=== PATIENT | male | born 2000 | race Caucasian/White ===

== ENCOUNTER 2021-05-18 22:22 | Emergency (ER) | payer BC, SELFPAY ==
--- NOTE | 2021-05-18 22:41 | ED.NAVMDI ---
HPI - Nausea/Vomiting/Diarrhea General Chief complaint: Nausea/Vomiting/Diarrhea Stated complaint: throwing up since Source: patient and RN notes reviewed Mode of arrival: ambulatory Limitations: no limitations History of Present Illness MD elicited complaint: nausea and vomiting Onset (ago): day(s) (1) Description of vomiting: food contents and bilious Associated nausea: Yes Location of pain: epigastric ( muscles feel sore from vomiting) Pain consistency: intermittent Severity: mild Quality: cramping and dull Exacerbating factors: none Relieving factors: none Associated symptoms: denies other symptoms Related Data Allergies Allergy/AdvReac Type Severity Reaction Status Date / Time No Known Allergies Allergy Verified 05/18/21 22:40 Review of Systems Review of Systems: All systems reviewed & are unremarkable except as noted in HPI and below Constitutional: Constitutional: Denies chills and Denies fever(s) Genitourinary: Genitourinary: Denies dysuria PMFSH Past Medical History Medical History (Updated 05/19/21 @ 04:32 by Mati Edwards MD) No active medical problems Surgical History Surgical History (Updated 05/18/21 @ 22:49 by Mati Edwards MD) No pertinent past surgical history Social History Social History (Updated 05/18/21 @ 22:49 by Mati Edwards MD) Smoking status: Never smoker Second hand tobacco smoke exposure: No Alcohol intake: current Substance use: never Exam Const: General: healthy appearing, no acute distress and alert Nutritional Appearance: well nourished and thin Orientation/consciousness: patient oriented x3 HENMT: Head: normal to inspection Ears: external ears normal Eyes: Cornea: corneas normal Pupils: Equal, round and reactive pupils present EOM: EOMs intact bilaterally Neck: Neck: normal visual inspection Resp: Effort & Inspection: normal respiratory effort Auscultation: clear to auscultation bilaterally Cardio: Rate: regular rate Rhythm: regular rhythm GI: GI Palp: Yes Soft to palpation, Yes Tenderness to palpation present (GI) (moderate epigastric), Yes Guarding due to palpation present (GI) (moderate) and No Rebound tenderness present Auscultation: normal bowel sounds Back/Spine/Pelvis: Cervical Spine: cervical ROM normal Thoracic/Lumbar Spine: thoraco-lumbar ROM normal Skin: General skin exam: normal color Rashes: no rashes Neuro: General: patient oriented x3, moves all extremities, no meningeal signs and no focal motor deficits Speech: normal speech Gait exam (Neuro): Normal gait present Extrem: General: normal to inspection and no clubbing, cyanosis or edema Psych: Appearance: grossly normal and well kempt Mental Status: mental status grossly normal Affect: normal affect Attitude: cooperative Thought content: Yes Normal thought content present Course Vital Signs Vital signs: Vital Signs Temperature 36.9 C 05/18/21 22:42 Pulse Rate 65 05/18/21 22:42 Respiratory Rate 18 05/18/21 22:42 Blood Pressure 125/89 05/18/21 22:42 Pulse Oximetry 100 05/18/21 22:42 Temperature 36.9 C 05/18/21 22:42 Pulse Rate 61 05/19/21 04:51 Respiratory Rate 17 05/19/21 04:51 Blood Pressure 121/80 05/19/21 04:51 Pulse Oximetry 98 05/19/21 04:51 MDM - Nausea/Vomiting/Diarrhea Lab Data Attestation: I reviewed the patient's lab results. Result diagrams: 05/18/21 22:59 05/18/21 22:59 Labs: Lab Results 05/18/21 05/18/21 05/18/21 Range/Units 22:52 22:53 22:59 WBC 14.5 H (4.8-10.8) K/mm3 RBC 5.16 (4.70-6.10) M/mm3 Hgb 16.1 (14.0-18.0) g/dL Hct 47.5 (40.0-54.0) % MCV 92.1 (78.0-102.0) fL MCH 31.2 H (27.0-31.0) pg MCHC 33.9 (32.0-36.0) g/dL RDW 11.9 (11.6-14.4) % Plt Count 348 (150-420) K/mm3 MPV 10.1 (8.7-11.0) fl Immature Gran % (Auto) 0.3 H (0.0-0.0) % Neut % (Auto) 82.6 H (50.0-70.0) % Lymph % (Auto) 8.7 L (18.
[2021-05-18 22:42] VITALS: BP 125/89; PULSE 65; RESP 18; TEMP 36.9; O2SAT 100
[2021-05-18] MEDS: LACTATED RINGERS 1,000 ML 999 ML IV CONT (23:04)
[2021-05-18 23:05] LABS: Basophils Absolute Auto 0.03 K/mm3 (0.00-0.10); Basophils Percent Auto 0.2 % (0.0-1.0); Eosinophils Absolute Auto 0.01 K/mm3 (0.02-0.50); Eosinophils Percent Auto 0.1 % (1.0-6.0); Hematocrit 47.5 % (40.0-54.0); Hemoglobin 16.1 g/dL (14.0-18.0); Immature Granulocyte Absolute 0.04 K/mm3 (0.00-0.00); Immature Granulocyte Percent A 0.3 % (0.0-0.0); Lymphocytes Absolute Auto 1.25 K/mm3 (1.10-4.50); Lymphocytes Percent Auto 8.7 % (18.0-42.0); Mean Corpuscular HGB Conc 33.9 g/dL (32.0-36.0); Mean Corpuscular Hemoglobin 31.2 pg (27.0-31.0); Mean Corpuscular Volume 92.1 fL (78.0-102.0); Mean Platelet Volume 10.1 fl (8.7-11.0); Monocytes Absolute Auto 1.17 K/mm3 (0.10-0.90); Monocytes Percent Auto 8.1 % (2.0-11.0); Neutrophils Percent Auto 82.6 % (50.0-70.0); Platelet Count Result 348 K/mm3 (150-420); Red Blood Count 5.16 M/mm3 (4.70-6.10); Red Cell Distribution Width 11.9 % (11.6-14.4); White Blood Count 14.5 K/mm3 (4.8-10.8)
[2021-05-18 23:21] LABS: Alanine Aminotransferase 35 U/L (16-63); Albumin Level 5.5 g/dL (3.4-5.0); Alkaline Phosphatase 103 U/L (46-116); Anion Gap 11 mmol/L (8-16); Aspartate Amino Transferase 20 U/L (15-37); Bilirubin,Total 0.7 mg/dL (0.00-1.00); Blood Urea Nitrogen 40 mg/dL (7-18); Calcium 10.5 mg/dL (8.5-10.1); Carbon Dioxide 30 mmol/L (21-32); Chloride 96 mmol/L (98-108); Estimated CRCL calculation 41 ml/min; Estimated Glomerular Filt Rate 48; Glucose 147 mg/dL (70-99); Osmolality Calculated 296 mOsm/kg (285-295); Potassium 4.4 mmol/L (3.5-5.1); Sodium 137 mmol/L (136-145); Total Protein 9.4 g/dL (6.4-8.2)
[2021-05-18 23:22] LABS: CRP < 0.2 mg/dL (0.0-0.9); Lipase 72 U/L (73-393)
--- NOTE | 2021-05-19 01:09 | PC.NURSE ---
pt states that he feels a little nauseous at this time that comes and goes. pt requested to provide a urine sample. pt given a urinal. pt states, i will try but i just can't go. pt has not had any emesis since arriving at the ER.
[2021-05-19] MEDS: ONDANSETRON INJ 4 MG/2 ML VIAL IV PUSH (01:38)
[2021-05-19] MEDS: LACTATED RINGERS 1,000 ML 999 ML IV CONT (01:39)
[2021-05-19 01:46] VITALS: BP 122/83; PULSE 61; RESP 15; O2SAT 98
[2021-05-19 04:17] LABS: Add Urine Microscopic? YES; Appearance Urine Clear (Clear); Bilirubin Urine Negative (Negative); Blood Urine Negative (Negative); Color Urine Light Yellow (Yellow); Glucose Urine UA Negative (Negative); Ketones Urine Negative (Negative); Leukocyte Esterase Ur Negative LEU/UL (Negative); Nitrate Urine Negative (Negative); Protein Urine Trace (Negative); Urobilinogen Urine 0.2 mg/dL (0.2-1.0)
[2021-05-19 04:24] LABS: Amphetamine Screen Urine Negative (Negative); Barbiturate Screen Urine Negative (Negative); Benzodiazepines Screen Urine Negative (Negative); Cannabinoid Screen Urine Positive (Negative); Cocaine Screen Urine Negative (Negative); Methadone Screen Urine Negative (Negative); Opiate Screen Urine Negative (Negative); Phencyclidine Screen Urine Negative (Negative)
[2021-05-19 04:26] LABS: Amorphous Sediment Urine Few; Bacteria Urine 3+ /hpf; RBC Urine 0-2 /hpf (0-2); Squamous Epithelial Cell Urine None seen /hpf (Few); WBC Urine 0-3 /hpf (0-3)
[2021-05-19 04:51] VITALS: BP 121/80; PULSE 61; RESP 17; O2SAT 98
== END 2021-05-19 04:52 | disposition home or self-care (01) ==
PROVIDERS: Emergency Provider Emergency Medicine
DX: K52.9 Noninfective gastroenteritis and colitis, unspecified (principal); E86.0 Dehydration
CPT/HCPCS: 36415; 80053; 80307; 81001; 83690; 85025; 86140; 96361; 96374; 99283; 99284; J2405; J7120